=== PATIENT | female | born 1965 | race Caucasian/White ===

== ENCOUNTER → 2020-09-26 | Outpatient (CLI) | payer BC ==
--- NOTE | 2020-09-29 13:30 | MM ---
Reason for exam: screening (asymptomatic). Last mammogram was performed 4 years and 3 months ago. History: Patient has history of other cancer at age 38 and had first child at age 30. Physical Findings: A clinical breast exam by your physician is recommended on an annual basis and results should be correlated with mammographic findings. MG Screening Mammo w CAD Bilateral CC and MLO view(s) were taken. Prior study comparison: June 20, 2016, mammogram, performed at [facility]. February 27, 2015, mammogram, performed at [facility]. There are scattered fibroglandular densities. No significant changes when compared with prior studies. ASSESSMENT: Benign, BI-RAD 2 RECOMMENDATION: Routine screening mammogram of both breasts in 1 year.
== END | disposition home or self-care (01) ==
LOC: RADMAMWWP 13:44
PROVIDERS: ATTEND Obstetrics & Gynecology
DX: Z12.31 Encounter for screening mammogram for malignant neoplasm of breast (principal); Z85.9 Personal history of malignant neoplasm, unspecified
CPT/HCPCS: 77067